=== PATIENT | female | born 1995 | race African-American/Black ===

== ENCOUNTER → 2024-08-29 11:07 | Outpatient (CLI) | payer OTHER, SELFPAY ==
--- NOTE | 2024-08-29 11:10 | DI.MRI.S_ITS ---
PROCEDURE: MR ABDOME PELVIS WWO CON INDICATIONS: ABD,PELVIC AND PERINEAL PAIN TECHNIQUE: Coronal HASTE, axial 2D FLASH in- and [id number]; axial breath-hold T2 FSE; dynamic axial VIBE during IV gadolinium administration; postgadolinium coronal VIBE or 2D FLASH with fat saturation from the hepatic dome to the iliac crests. COMPARISON: None. FINDINGS: Image quality: Diagnostic. Lung bases: Unremarkable. Liver: No solid mass. Gallbladder: No gallstones or wall thickening. Biliary ducts: No biliary dilation. Pancreas: No ductal dilation. Spleen: Size is within normal limits. Adrenal Glands: No adrenal nodules. Kidneys and Ureters: No hydronephrosis. No solid mass. No complex renal cystic lesion which requires follow up. Stomach and Bowel: Normal colonic caliber, without significant wall thickening. Peritoneum: No abnormal intraperitoneal fluid. No free air. Ventral Wall: No hernia. Abdominal Nodes: No retroperitoneal or mesenteric adenopathy by size criteria. Vessels: Aorta and inferior vena cava are normal in size. Pelvis: No pelvic mass. Retroflexed uterus. Right-sided corpus luteum. Prior . Bones: No aggressive osseous abnormality. IMPRESSION: No acute abnormality to explain the patient's pelvic pain. Prior , without abnormality. Left-sided corpus luteum. This is benign and requires no further follow-up. Dictated by: Alejandro Moses M.D. on 08/29/2024 at 16:29 Approved by: Alejandro Moses M.D. on 08/29/2024 at 16:33
== END ==
PROVIDERS: PCP Family Medicine; Referring Provider Family Medicine; Visit Provider Family Medicine
DX: R10.2 Pelvic and perineal pain (principal); R10.31 Right lower quadrant pain
CPT/HCPCS: 72197; 74183; A9579